=== PATIENT | male | born 1990 | race Caucasian/White ===

== ENCOUNTER 2022-05-05 18:28 | Emergency (ER) | payer OTHER, SELFPAY ==
--- NOTE | ~2022-05-05 | CT_ITS ---
EXAMINATION: CT abdomen pelvis w con DATE: 05/05/2022 21:52 INDICATION: Right lower quadrant abdominal pain. TECHNIQUE: Computed tomography (CT) of the abdomen and pelvis was performed with 100 mL Omnipaque-350 intravenous contrast. Automated exposure control and iterative reconstruction technique were employe d. The dose-length product was 1476.27 mGy-cm. COMPARISON: None FINDINGS: Lung bases are clear. Heart size is normal. No pericardial or pleural effusion. Diffuse hepatic steat osis with focal sparing along the gallbladder fossa. Gallbladder, spleen, pancreas, bilateral adrenal glands and kidneys are normal. Normal appendix. No bowel obstruction. There is some fatty infiltrati on of the wall of the gastric antrum, duodenum. Terminal ileum which could be related to body habitus or response to prior inflammation. Bladder is normal. Small to moderate-sized left and small right f at-containing inguinal hernias. No free intraperitoneal gas or fluid. No pathologically enlarged abdo nadya or pelvic lymphadenopathy. Likely physiologic mild anterior wedging at T11 and T12. IMPRESSION: 1. Normal appendix. No acute intra-abdominal/pelvic process. 2. Mild fatty infiltration of the wall of the gastric antrum, duodenum and terminal ileum which could be related to body habitus but could also be seen in response to chronic inflammation such as in the setting of inflammatory bowel disease. 2. Small right and small to moderate-sized left fat-containing inguinal hernias. Reviewed, dictated and finalized at location A. IMPRESSION: 1. Normal appendix. No acute intra-abdominal/pelvic process. 2. Mild fatty infiltration of the wall of the gastric antrum, duodenum and term inal ileum which could be related to body habitus but could also be seen in res ponse to chronic inflammation such as in the setting of inflammatory bowel dise ase. 2. Small right and small to moderate-sized left fat-containing inguinal hernias .
[2022-05-05 18:31] VITALS: BP 148/74; PULSE 73; RESP 16; TEMP 36.2; O2SAT 100
[2022-05-05 18:41] LABS: Basophils Absolute Auto 0.1 K/mm3 (0.0-0.1); Basophils Percent Auto 0.9 % (0.2-1.2); Eosinophils Absolute Auto 0.2 K/mm3 (0-0.3); Eosinophils Percent Auto 2.1 % (0-4.4); Hematocrit 43.2 % (42.0-52.0); Hemoglobin 13.9 g/dL (14.0-18.0); Immature Granulocyte Absolute 0.03 K/mm3 (0.00-0.031); Immature Granulocyte Percent A 0.4 % (0-0.5); Lymphocytes Percent Auto 31.6 % (18.3-44.2); Mean Corpuscular HGB Conc 32.2 g/dl (32-36); Mean Corpuscular Hemoglobin 28.8 pg (26-34); Mean Corpuscular Volume 89.6 fl (80-100); Mean Platelet Volume 10.2 fl (7.4-10.4); Monocytes Absolute Auto 0.6 K/mm3 (0.1-0.6); Monocytes Percent Auto 7.4 % (2.6-8.5); Neutrophils Absolute Auto 4.7 K/mm3 (1.3-6.7); Neutrophils Percent Auto 57.6 % (45.5-73.1); Platelet Count Result 313 k/mm3 (150-375); Red Blood Count 4.82 M/mm3 (4.6-6.20); Red Cell Distribution Width 13.5 % (11.5-14.5); White Blood Count 8.2 K/mm3 (4.5-10.0)
[2022-05-05 18:53] LABS: Alanine Aminotransferase 180 U/L (6-50); Albumin Level 4.7 g/dL (3.5-5.1); Alkaline Phosphatase 66 U/L (38-126); Anion Gap 11 mmol/L (8-16); Aspartate Amino Transferase 88 U/L (17-59); Bilirubin,Total 0.5 mg/dL (0.2-1.3); Blood Urea Nitrogen 18 mg/dL (9-20); Calcium 9.2 mg/dL (8.4-10.2); Carbon Dioxide 25 mmol/L (22-30); Chloride 105 mmol/L (98-107); Estimated CRCL calculation 100 ml/min; Estimated Glomerular Filt Rate > 60; Glucose 108 mg/dL (65-110); Lipase 91 U/L (23-300); Potassium 4.4 mmol/L (3.4-5.0); Sodium 141 mmol/L (137-145)
[2022-05-05 20:57] VITALS: BP 151/81; O2SAT 100
[2022-05-05 20:57] LABS: Appearance Urine Clear (Clear); Bilirubin Urine Negative (Negative); Blood Urine Negative (Negative); Color Urine Yellow (Yellow); Glucose Urine UA Negative (Negative); Ketones Urine Negative (Negative); Leukocyte Esterase Ur Negative LEU/UL (Negative); Nitrate Urine Negative (Negative); Protein Urine Negative (Negative); Specific Grav Ur >= 1.030 (1.001-1.035); Urobilinogen Urine 0.2 mg/dL (<2.0); pH Urine 5.5 (5.0-9.0)
[2022-05-05 20:58] VITALS: O2SAT 100
[2022-05-05 20:58] LABS: Add Urine Microscopic? NO
[2022-05-05 21:00] VITALS: O2SAT 100
[2022-05-05 21:02] VITALS: BP 135/71; O2SAT 100
--- NOTE | 2022-05-05 21:45 | PC.NURSE ---
Patient off unit to CT.
--- NOTE | 2022-05-05 22:58 | PC.NURSE ---
Patient report to [facility]. All questions answered and care of patient transferred.
--- NOTE | 2022-05-05 23:26 | ED.GENADULT ---
HPI - General Adult General Chief complaint: Abdominal Pain Stated complaint: RLQ pain Time Seen by Provider: 05/05/22 20:38 History of Present Illness HPI narrative: Patient is a 32-year-old male who presents ER with right lower quadrant abdominal pain. Ongoing for 3 days. Notices it laterally. Sometimes radiates down towards his groin. No urinary frequency urgency or dysuria. No blood in urine. No diarrhea. Reports that it never started in his epigastrium. 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 Related Data Allergies Allergy/AdvReac Type Severity Reaction Status Date / Time No Known Allergies Allergy Verified 05/05/22 20:59 Review of Systems Review of Systems: All systems reviewed & are unremarkable except as noted in HPI and below Constitutional: Constitutional: Denies chills, Denies fatigue and Denies fever(s) Cardiovascular: Cardiovascular: Denies chest pain and Denies radiating jaw, neck or arm pain Respiratory: Respiratory: Denies cough and Denies dyspnea Gastrointestinal: Gastrointestinal: Reports abdominal pain, Denies constipation, Denies diarrhea, Denies nausea and Denies vomiting Genitourinary: Genitourinary: Denies hematuria, Denies dysuria and Denies testicular pain PMFSH Past Medical History Medical History (Updated 05/05/22 @ 23:31 by Maverick Encarnacion MD) Healthy male adult Surgical History Surgical History (Updated 05/05/22 @ 23:31 by Maverick Encarnacion MD) No pertinent past surgical history Social History Social History (System 12/05/19 @ 12:44 by Lenora Torres) Smoking status: Current every day smoker Gender identity (if verbalized by the patient): Male Exam Narrative: GENERAL: Well-appearing, well-nourished, and in no acute distress. HEAD: Normocephalic, atraumatic. EYES: PERRL and EOMI. CHEST: Clear to auscultation. No respiratory distress. HEART: Regular rate and rhythm. Normal peripheral pulses. ABDOMEN: Soft, mildly tender right lower quadrant but not at McBurney's point it is more lateral, nondistended, normal active bowel sounds. EXTREMITIES: Normal range of motion. No edema. SKIN: Warm, dry, no rash. NEURO: Alert and oriented x3. PSYCH: Normal mood and affect. Course Course Emergency Course: Informed of results recommend follow-up with a PCP. Discussed the irregularity of the stomach and may require EGD with GI. Vital Signs Vital signs: Vital Signs Temperature 97.2 F L 05/05/22 18:31 Pulse Rate 73 05/05/22 18:31 Respiratory Rate 16 05/05/22 18:31 Blood Pressure 148/74 H 05/05/22 18:31 Pulse Oximetry 100 05/05/22 18:31 Temperature 97.2 F L 05/05/22 18:31 Pulse Rate 73 05/05/22 18:31 Respiratory Rate 16 05/05/22 18:31 Blood Pressure 135/71 05/05/22 21:02 Pulse Oximetry 100 05/05/22 21:02 Medical Decision Making Vital Signs Vital Signs: Vital Signs Temperature 97.2 F L 05/05/22 18:31 Pulse Rate 73 05/05/22 18:31 Respiratory Rate 16 05/05/22 18:31 Blood Pressure 148/74 H 05/05/22 18:31 Pulse Oximetry 100 05/05/22 18:31 Temperature 97.2 F L 05/05/22 18:31 Pulse Rate 73 05/05/22 18:31 Respiratory Rate 16 05/05/22 18:31 Blood Pressure 135/71 05/05/22 21:02 Pulse Oximetry 100 05/05/22 21:02 Lab Data Result diagrams: 05/05/22 18:34 05/05/22 18:34 Labs: Lab Results 05/05/22 05/05/22 05/05/22 Range/Units 18:34 18:34 20:51 WBC 8.2 (4.5-10.0) K/mm3 RBC 4.82 (4.6-6.20) M/mm3 Hgb 13.9 L (14.0-18.0) g/dL Hct 43.2 (42.0-52.0) % MCV 89.6 (80-100) fl MCH 28.8 (26-34) pg MCHC 32.2 (32-36) g/dl RDW 13.5 (11.5-14.5) % Plt Count 313 (150-375) k/mm3 MPV 10.2 (7.4-10.4) fl Immature Gran % (Auto) 0.4 (0-0.5) % Neut % (Auto) 57.6 (45.5-73.1) % Lymph % (Auto) 31.6 (18.3-44.2) % Overton % (Auto) 7.4 (2.6-8
[2022-05-05 23:40] VITALS: BP 134/89; PULSE 74; RESP 20; O2SAT 98
== END 2022-05-05 23:40 | disposition home or self-care (01) ==
PROVIDERS: Emergency Medicine; Emergency Provider Emergency Medicine
DX: S39.011A Strain of muscle, fascia and tendon of abdomen, initial encounter (principal); F17.200 Nicotine dependence, unspecified, uncomplicated; X58.XXXA Exposure to other specified factors, initial encounter
CPT/HCPCS: 36415; 74177; 80053; 81003; 83690; 85025; 99284; Q9967

== ENCOUNTER 2023-06-18 15:05 | Emergency (ER) | payer SELFPAY ==
[2023-06-18 15:14] VITALS: BP 142/78; PULSE 81; RESP 20; TEMP 36.3; O2SAT 100
--- NOTE | 2023-06-18 15:40 | ED.GENADULT ---
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 Patient has no testicle swelling or pain. Patient reports that he has no primary care physician so came here to be referred to surgeon for evaluation. Patient reports pain increase when lifting any thing and has constant feeling of pressure to his left groin area. Patient denies any difficulty with urination or any problems with defecation.. MD complaint: left groin pain and bulge Onset (ago): day(s) (5 days) Location: abdomen (left groin) Severity scale (1-10): 4 Related Data Home Medications Medication Instructions Recorded Confirmed No Home Medications 06/18/23 06/18/23 Allergies Allergy/AdvReac Type Severity Reaction Status Date / Time No Known Allergies Allergy Verified 06/18/23 15:19 Review of Systems Review of Systems: CONSTITUTIONAL: Denies fever, chills, or sweats. ENT: Denies rhinorrhea, congestion, sore throat, or otalgia. CARDIOVASCULAR: Denies chest pain, palpitations, or edema. RESPIRATORY: Denies cough or dyspnea. GASTROINTESTINAL: Reports abdominal pain in left groin region, no nausea, vomiting, diarrhea. GENITOURINARY: Denies dysuria or hematuria. SKIN: Denies rash or itching. MUSCULOSKELETAL: Denies back pain, joint pain, or myalgia. NEUROLOGIC: Denies headache, numbness, or weakness. All systems reviewed & are unremarkable except as noted in HPI and below PMFSH Past Medical History Medical History Healthy male adult History of repaired hypospadias Social History Social History Smoking status: Current every day smoker Gender identity (if verbalized by the patient): Male Comments At time of signature, agree with nursing past medical, surgical, social and family history. There is no relevant family history pertinent to the presenting complaint Exam Narrative: GENERAL: Well-appearing, well-nourished, and in no acute distress. HEAD: Normocephalic, atraumatic. EYES: PERRLA, conjunctivae clear, and EOMI. ENT: Nares clear. Mucous membranes moist. Oropharynx without edema, erythema, or lesions. Tonsils not enlarged and without exudate. NECK: Supple. No lymphadenopathy CHEST: Speaks in full sentences. No respiratory distress. SAO2 100% on room air HEART: Regular rate and rhythm. ABDOMEN: Soft, flat, nondistended. No guarding, rebound tenderness, or rigid. No pulsatilla masses. Bowel sounds present in all four quadrants. No organomegaly. Negative Woodard?s sign. No periumbilical tenderness. No Supra public tenderness or distension. Good femoral pulses bilaterally.Bulge noted to left groin region with tenderness on palpationnoted. No scars or surface trauma. SKIN: Warm, dry, no rash. NEURO:? Alert and oriented x3. PSYCH: Normal mood and affect Course Course Emergency Course: Patient is aware of diagnosis, understands and agrees to treatment plan.? Anticipatory guidance given.? Patient agrees to follow-up as directed and is aware of reasons to seek care at the emergency department. Portions of this record may have been created with voice recognition software Level of Care: Express Care Visit Vital Signs Vital signs: Vital Signs Temperature 36.3 C L 06/18/23 15:14 Pulse Rate 81 06/18/23 15:14 Respiratory Rate 20 06/18/23 15:14 Blood Pressure 142/78 H 06/18/23 15:14 Pulse Oximetry 100 06/18/23 15:14 Oxygen Delivery Room Air 06/18/23 15:14 T
== END 2023-06-18 16:11 | disposition home or self-care (01) ==
PROVIDERS: Emergency Provider Registered Nurse
DX: R10.32 Left lower quadrant pain (principal); R22.2 Localized swelling, mass and lump, trunk; F17.200 Nicotine dependence, unspecified, uncomplicated
CPT/HCPCS: 99211; G0463

== ENCOUNTER 2023-09-11 08:04 | Outpatient (CLI) | payer OTHER, SELFPAY | END 2023-09-11 08:05 | disposition home or self-care (01) | LOC: ANHSURGERY 08:07 | PROVIDERS: Visit Provider Surgery | DX: K40.20 Bilateral inguinal hernia, without obstruction or gangrene, not specified as recurrent (principal); Z01.818 Encounter for other preprocedural examination | CPT/HCPCS: 36415; 86850; 86900; 86901 ==

== ENCOUNTER 2023-09-13 01:40 | Day surgery (SDC) | payer OTHER, SELFPAY ==
[2023-09-06 12:59] VITALS: BMI 35.3
--- NOTE | 2023-09-06 13:04 | PC.NURSE ---
Report to the Outpatient Waiting Room, entrance under the green pavilion located off [facility], at time 6:00 on date 09/13/23. Planned Procedure Time: 7:30. Time changes happen often and if your time is changed the preop area will call you the afternoon before. - You and your visitor will be asked to self-screen and do not enter if you have any COVID symptoms. - A mask is optional within the hospital at this time. Patients may have clear liquids (water, carbonated beverages, clear teas, apple juice) until 3 hours prior to surgery (4:30) with a maximum of 20 ounces. - No food from midnight until time of surgery Take the following medications with a SIP of water the morning of surgery: N/A DO NOT STOP ANY OF YOUR OTHER PRESCRIPTION MEDICATIONS PRIOR TO SURGERY ?EXCEPT THE FOLLOWING Medications to discontinue per physician: N/A Date to take last dose: N/A Please no make-up, nail lao, hairspray, perfume, deodorant, or body powder the day of surgery. No jewelry (including any body piercings) or valuables the day of surgery, leave them at home. Please take a shower or bath the night before, or the morning of, surgery with an antibacterial soap. Wear comfortable, loose fitting clothing. - Jewelry must be removed prior to entering the operating room. Rings and piercings that are not removed may be cut off. - The hospital will not accept responsibility for valuables. - Please leave all valuables, including medications, at home the day of surgery. If you are going home after surgery, a licensed bicycle taxi driver must drive you home. - NO public transportation without another adult if you receive anesthesia. - We recommend that an adult stay with you for 24 hours following discharge. - We also recommend that you do not drive, make important decision, drink alcoholic beverages, or take any drugs that were not prescribed by your health care provider for at least 24 hours after your discharge time. Follow any additional instructions given to you from your surgeon. If you or anyone in your household have experienced Covid symptoms in the past week, please notify your surgeon or the nurse liaison at the phone number below for possible testing. Telephone instructions given to PT - TERI MARTINEZ and asked if any additional questions and then verbalized understanding. Patient advised to call surgeon office or pre surgery nurse liaison [phone] if any additional questions.
--- NOTE | 2023-09-12 14:27 | WPDANESEPPF ---
Anes - Initial Pre Proc Eval Procedure: Operation Date: 09/13/23 07:30 Proposed Procedures p Robotic Assisted Laparoscopic Bilateral Inguinal Hernia Repair with Mesh - Elvin Kingsley MD Date/Time: 09/12/23 14:27 Surgeon: Elvin Kingsley MD Pre Op Diagnosis: Reji Reducible Ing Hernias Patient Data Age: 33 Gender: M Height: 1.8 m Weight: 114.8 kg Allergies Allergy/AdvReac Type Severity Reaction Status Date / Time No Known Allergies Allergy Verified 09/06/23 12:59 Home Medications Medication Instructions Recorded Confirmed Type No Home Medications 06/18/23 09/06/23 History Patient hx anesthesia problems: none Family hx anesthesia problems: none Results Review: All pre-operative results and documents have been reviewed as part of the pre-operative evaluation. [facility] Past Medical History Medical History Healthy male adult History of repaired hypospadias Family History Family History (Updated 07/11/23 @ 11:08 by Afia Hooker MA) Other Cancer Social History Social History (Updated 07/11/23 @ 11:08 by Afia Hooker MA) Smoking status: Current every day smoker Tobacco type: e-cigarettes/vaping Alcohol intake: current Drinks per week: 30 Alcohol use details: BEER Substance use: never Substance use type: does not use Living arrangements: alone Occupation/Education: occupation Gender identity (if verbalized by the patient): Male Spiritual care concerns: No Anes - Eval Final PreProcedure Day of Procedure 09/12/23 14:27 Patient weight: obese Heart: regular rate and rhythm Lungs: clear to auscultation Airway: Mallampati scale class II Neurological: alert and oriented Last oral intake: >/= 8 hours ASA classification: II Emergent: no Anesthetic plan: proceed Anesthesia type and monitoring: general ETT and standard monitoring Results Review: All pre-operative results and documents have been reviewed as part of the pre-operative evaluation. Informed Consent: The patient's anesthetic plan and its attendant risks and benefits were discussed with the patient/family/POA. Questions were solicited and answers provided to the satisfaction of the patient/family/POA.
[2023-09-13] VITALS (8 sets, daily range): BP systolic 130–165; BP diastolic 73–93; PULSE 79–106; RESP 12–16; TEMP 36.5–37.1; O2SAT 96–100
[2023-09-13] MEDS: LACTATED RINGERS 1,000 ML 30 ML IV CONT ×2 (07:15→10:32)
--- NOTE | 2023-09-13 07:26 | PM.IMHP ---
H&P: HPI History of Present Illness Date/Time: 09/13/23 07:26 Chief Complaint: Bilateral inguinal hernia Narrative: Mr. Whitfield presents to the office for evaluation.? 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 Prior to this event, he denies pain or bulging in his groins.? He denies abdominal distension, nausea, vomiting, or changes in bowel habits.? A CT scan was performed which showed: IMPRESSION: 1. Normal appendix. No acute intra-abdominal/pelvic process. 2. Mild fatty infiltration of the wall of the gastric antrum, duodenum and terminal ileum which could be related to body habitus but could also be seen in response to chronic inflammation such as in the setting of inflammatory bowel disease. 2. Small right and small to moderate-sized left fat-containing inguinal hernias. Review of Systems Review of Systems: The remainder of the review of systems to include constitutional, HEENT, cardiovascular, respiratory, GI, , integumentary, musculoskeletal, endocrine, immunologic, hematologic, psychiatric, and neurologic are all negative except for which is mentioned above in the HPI. [facility] Past Medical History Medical History Healthy male adult History of repaired hypospadias Family History Family History Other Cancer Social History Social History Smoking status: Current every day smoker Tobacco type: e-cigarettes/vaping Alcohol intake: current Drinks per week: 30 Alcohol use details: BEER Substance use: never Substance use type: does not use Living arrangements: alone Occupation/Education: occupation Gender identity (if verbalized by the patient): Male Spiritual care concerns: No Meds Home Medications and Allergies Home Medications Medication Instructions Recorded Confirmed Type No Home Medications 06/18/23 09/06/23 History Allergies Allergy/AdvReac Type Severity Reaction Status Date / Time No Known Allergies Allergy Verified 09/06/23 12:59 Exam Const: General: comfortable and no acute distress HENMT: Ears: TM's normal bilaterally Face/Nose/Sinus: Normal nares present Mouth: Yes moist mucous membranes Eyes: General: appearance normal, both eyes and all related structures Sclera: sclerae normal Pupils: Equal, round and reactive pupils present Neck: Neck: supple and no JVD Resp: Effort & Inspection: normal respiratory effort Auscultation: clear to auscultation bilaterally Cardio: Rate: regular rate Rhythm: regular rhythm GI: GI Palp: Yes Soft to palpation, No Firmness to palpation present (GI), No Tenderness to palpation present (GI), No Guarding due to palpation present (GI) and No Hernia present : Other: Bilateral descended testes. No masses.? Moderate sized reducible left inguinal hernia. Easily palpable with Valsalva.? No obvious palpable right inguinal hernia. Skin: General skin exam: normal color and no rashes or lesions noted Neuro: General: gait normal Speech: normal speech Motor exam (neuro): 5/5 motor strength present throughout Sensory Exam: normal sensation Extrem: General: normal to inspection Psych: Mental Status: mental status grossly normal Affect: normal affect Assessment and Plan Assessment and plan (1) Bilateral inguinal hernia without obstruction or gangrene: Qualifiers: Recurrence: non-recurrent Qualified Code(s): K40.20 - Bilateral inguinal hernia, without obstruction or gangrene, not specified as recurrent Code(s): K40.20 - Bilateral inguinal hernia, without obstruction or gangrene, not specified as recurrent Status: Acute Assessment and Plan: Patient has bilateral inguinal hernias, left > right. Left inguinal marilee
--- NOTE | 2023-09-13 07:29 | WPDHPUPDATE1 ---
History and Physical Update Update Date/Time: 09/13/23 07:29 History and Physical has been reviewed, including an updated exam of the patient. There are NO changes in the patient's condition. Risks, benefits, and alternatives have been discussed and questions answered. Patient agrees to proceed with procedure.
[2023-09-13] MEDS: ceFAZolin 2 GM/D5W 50 ML 2 GM/50 ML BAG IVPB (07:37)
[2023-09-13] MEDS: ACETAMINOPHEN 500 MG TABLET 1000 MG PO (07:41)
[2023-09-13] MEDS: KETOROLAC 15 MG/ML VIAL (*BKC) IV PUSH (07:41)
[2023-09-13] MEDS: LIDO 1%/EPINEPHRINE 1:100,000 20 ML VIAL 30 ML INFILTRATE (09:00)
[2023-09-13] MEDS: BUPivacaine HCL 0.5% PF 30 ML VIAL INFILTRATE (09:00)
--- NOTE | 2023-09-13 10:38 | W.PM.PROC2 ---
Procedure Note - Detailed Date of Procedure 09/13/23 Pre-op Diagnosis Reji Reducible Ing Hernias Post-op Diagnosis Same (Bilateral direct inguinal hernias.) Procedure Performed Robotic assisted laparoscopic bilateral inguinal hernia repair with Bard 3D mid weight mesh. (17 x 12 cm both sides) Surgeon Elvin Kingsley MD Channel Business Manager Aydin Albarran [employer]WORKING [employer]INE[employer] Anesthesia General Indications Patient is a 33-year-old gentleman who presented with a left groin bulge was enlarging after lifting heavy object at work. He did have a CT scan of the abdomen pelvis prior to presented to the office and this also showed a small right inguinal hernia. On examination and over the pre she had a left inguinal hernia but he presents now for a bilateral hernia repair via robotic assisted laparoscopic approach with mesh due to the finding of a right inguinal hernia on CT scan as well. Findings Patient bilateral inguinal hernias left side being much larger than the right side. Both inguinal hernias were direct defects. Extra-large Bard 3D mid weight mesh is used for each side ([id number]) Description of Procedure After informed consent was obtained patient brought to the operating room placed supine position and general endotracheal anesthesia was administered. The abdomen bilateral groin regions were then prepped and draped usual sterile fashion. A time-out was then performed correctly identifying the patient as well as procedure to be performed. No site marking was needed this was a bilateral procedure. He was given perioperative IV antibiotics. I 1st started by entering the abdomen left upper quadrant utilizing a 10mm Optiview port. Once inside the abdomen insufflated to adequate pneumoperitoneum of 15mmHg of CO2. I then looked down the pelvis could see there were bilateral inguinal hernias. Left side was much larger than the right side. Both defects were direct defects. No incarceration of bowel or omentum was noted within the hernia sacs. I then had the patient placed 15? Trendelenburg and then additional robotic trocar ports were placed across the mid abdomen. The Deluuxi robot was then brought to the patient's bedside and docked and then the robotic arms were attached robotic ports. Robotic instruments were then advanced into the abdomen direct visualization then scrubbed out the procedure sent down the robotic console to perform the dissection robotically. I 1st started by making a lower peritoneal flap starting just medial and anterior to the right anterior superior iliac spine extending across the midline to the left side at the same level the left hip. Dissection was then carried down distally in this preperitoneal plane 1st in the midline were I divided the medial umbilical ligament and then dropped the dome of the bladder down. The pubic symphysis identified and the bilateral pubic tubercles were dissected out. I dissected down to the space of Retzius for couple cm. I then carried my dissection laterally on the right side finding a small direct inguinal defect. The pseudo sac was then dissected out of the defect and then I skeletonized the vas deferens and testicular vessels excising out a cord lipoma. I then dissected the peritoneum on the right side back up onto the psoas muscle beyond where the vas deferens and testicular vessels diverged. I then started the dissection on the left side. On the side the hernia was much larger and I dissected laterally from the left pubic tubercle and reduce the pseudo sac and the defect. And continued my dissection laterally of the cord structures and skeletonized the vas deferens and cystic vessels. Again a small cord lipoma was dissected out of the internal ring and resected and discarded. There is no evidence of a indirect inguinal hernia sac. Once I had the peritoneum dissected up onto the psoas muscle far enough that the vas deferens and testicular vessels the verge I felt that I had the peritoneum bilaterally dissected up so that the
[2023-09-13] MEDS: fentaNYL CITRATE INJ (*CRX) 100 MCG/2 ML VIAL 25 MCG IV PUSH ×4 (10:51→11:11)
--- NOTE | 2023-09-13 10:59 | SUR.PHASEI ---
1056: Simple mask removed.
[2023-09-13] MEDS: oxyCODONE HCL (*CRX) 5 MG TAB IR PO (11:46)
--- NOTE | 2023-09-13 12:46 | SUR.PHASEII ---
Patient dressed and awaiting ride home. Vital signs stable. IV removed.
== END 2023-09-13 13:03 | disposition home or self-care (01) ==
PROVIDERS: Visit Provider Surgery
PROC: 8E0Y4CZ Robotic Assisted Procedure of Lower Extremity, Percutaneous Endoscopic Approach (ICD-10-PCS; CPT 49650; principal; 2023-09-13 07:30)
DX: K40.20 Bilateral inguinal hernia, without obstruction or gangrene, not specified as recurrent (principal); X50.0XXA Overexertion from strenuous movement or load, initial encounter; F17.290 Nicotine dependence, other tobacco product, uncomplicated
CPT/HCPCS: 49650; S2900; A9270; C1781; J0690; J1100; J1170; J1885; J2250; J2405; J2704; J3010; J7030; J7120